=== PATIENT | female | born 1975 | race Caucasian/White ===

== ENCOUNTER 2022-09-20 21:15 | Emergency (ER) | payer SELFPAY ==
[2022-09-20 21:37] VITALS: BP 116/68; PULSE 98; RESP 16; BMI 33.7
[2022-09-20 21:41] VITALS: TEMP 98.1
[2022-09-20] MEDS ORDERED: ACETAMINOPHEN 325 MG TABLET (FP) PO ONE (21:51)
[2022-09-20] MEDS ORDERED: ACETAMINOPHEN 325 MG TABLET (FP) ONE (22:00)
== END 2022-09-21 00:08 | disposition home or self-care (01) ==
LOC: JER 21:15
DX: S69.92XA Unspecified injury of left wrist, hand and finger(s), initial encounter (principal); Y04.8XXA Assault by other bodily force, initial encounter
CPT/HCPCS: 73110-TC-LT-FY; 73130-TC-LT-FY; 99283-25